=== PATIENT | male | born 1940 | race Caucasian/White ===

== ENCOUNTER 2016-12-23 20:16 | Emergency (ER) | payer MEDICARE ==
[~2016-12-23 20:16] MED LIST: ADULT ASPIRIN81 MG; ADULT LOW DOSE81 M1 PO; ADULT LOW DOSE81 MG; ADULT LOW DOSE81 MG PO; AMBIEN5 M1 PO; ANTIVERT12.5 MG PO; ARICEPT5 M1 PO; ATORVASTATIN CA20 M1 PO; AVELOX400 MG; BUSPAR15 MG/TAB PO; BUSPAR5 MG PO; BUSPIRONE HCL7.5 M1 PO; BUSPIRONE HCL7.5 MG PO; CYMBALTA60 MG; EFFIENT10 MG/TAB PO; LEXAPRO10 M2 PO; LISINOPRIL10 MG; LISINOPRIL20 M1 PO; LISINOPRIL20 MG; LISINOPRIL20 MG PO; LORAZEPAM0.5 MG PO; MOBIC15 M1 PO; MOBIC15 M2 PO; MOBIC15 MG; MOBIC15 MG PO; MUCINEX DM1 TAB.SR .; MULTIVITAMIN1 TAB; MULTIVITAMIN1 TAB PO; MULTIVITAMINS1 EAC7 PO; NAMENDA XR21 M1 PO; NITROGLYCERIN0.4 M2 SL; NORVASC5 M1 PO; NORVASC5 M2 PO; ONE DAILY MULTI1 TAB; OXAPROZIN600 MG; PREDNISONE20 MG PO; PROSCAR5 M1 PO; PROSCAR5 MG; PROSCAR5 MG PO; SIMVASTATIN40 MG PO; TEMAZEPAM15 M1 PO; TEMAZEPAM15 MG; TEMAZEPAM15 MG PO; VYTORIN 10/20 T1 TAB; ZOCOR40 MG; ZOCOR40 MG PO; ZOFRAN ODT4 MG/UDTAB PO
[2016-12-23] MEDS ORDERED: BUSPIRONE HCL5 M1 PO (20:30)
[2016-12-23] MEDS ORDERED: NAMENDA XR28 M1 PO (20:30)
[2016-12-23] MEDS ORDERED: NORVASC5 M2 PO (20:30)
[2016-12-23] MEDS ORDERED: ASPIRIN EC81 MG PO (20:30)
[2016-12-23] MEDS ORDERED: PRINIVIL20 M1 PO (20:31)
[2016-12-23] MEDS ORDERED: LEXAPRO10 M2 PO (20:31)
[2016-12-23] MEDS ORDERED: MELATONIN10 M4 PO (20:31)
[2016-12-23] MEDS ORDERED: ARICEPT10 M2 PO (20:31)
[2016-12-23] MEDS ORDERED: LIPITOR20 M1 PO (20:32)
[2016-12-23] MEDS ORDERED: MUCINEX DM ER1 EAC1 PO (20:33)
[2016-12-23] MEDS ORDERED: ALLEGRA ALLERG180 M1 PO (20:33)
[2016-12-23] MEDS ORDERED: POTASSIUM PO (20:34)
[2016-12-23] MEDS ORDERED: PROBIOTIC1 EA10 PO (20:34)
[2016-12-23] MEDS ORDERED: SINGULAIR10 M1 PO (20:34)
[2016-12-23] MEDS ORDERED: MEN 50 PLUS MU1 EACH PO (20:34)
[2016-12-23] MEDS ORDERED: PROSCAR5 M1 PO (20:35)
[2016-12-23 20:47] LABS: BASO % 0.2 % (0-2); EOS % 1.6 % (0-7); EOSINOPHIL ABSOLUTE COUNT 0.2 tho/cmm (0.0-0.7); HCT-HEMATOCRIT 38.2 % (36.0-53.5); HGB-HEMOGLOBIN 13.7 gm/dl (13.5-17.0); IMMATURE GRANULOCYTES ABSOLUTE 0.02 tho/cmm (0-0.03); IMMATURE GRANULOCYTES PERCENT 0.2 % (0-0.3); LYMPH % 12.9 % (20-45); LYMPH ABSOLUTE COUNT 1.7 tho/cmm (0.8-4.5); MCH (MEAN CORPUSCULAR HGB) 32.6 pg (28.0-32.0); MCHC MEAN CORPUSCULAR HGB CONC 35.9 % (32.0-36.0); MEAN PLATELET VOLUME 9.2 cmc (9.4-12.4); MONO % 8.3 % (0-12); MONOCYTE ABSOLUTE COUNT 1.1 tho/cmm (0.0-1.2); NEUTROPHIL ABSOLUTE COUNT 10.2 tho/cmm (1.6-8.0); NEUTROPHIL-AUTOMATED 10.2 tho/cmm (1.6-8.0); NEUTROPHILS % 76.8 % (40-80); PLATELET COUNT 217 tho/cmm (150-450); RED CELL DISTRIBUTION WIDTH 15.2 % (12.4-16.4); WHITE BLOOD COUNT 13.2 tho/cmm (4.0-10.0)
[2016-12-23 21:03] LABS: ANION GAP 13 mmol/L (0-20); BLOOD UREA NITROGEN 14 mg/dl (6-24); CALCIUM 8.4 mg/dl (8.5-10.5); CARBON DIOXIDE-VENOUS 24 mmol/L (22-32); CHLORIDE 101 mmol/l (96-110); GLUCOSE 97 mg/dL (70-110); SODIUM 133 mmol/L (135-145); eGFR VALUE FOR BLACK >90 mL/Min
[2016-12-23 21:17] LABS: POTASSIUM 4.7 mmol/L (3.7-5.1)
[2016-12-23 21:30] LABS: ALB/GLOB RATIO 0.8 (0.8-2.0); ALKALINE PHOSPHATASE 70 U/L (33-138); ALT/SGPT 29 U/L (12-78); BILIRUBIN,DIRECT <0.1 mg/dl (0.0-0.3); BILIRUBIN,INDIRECT 0.2 mg/dL (0.0-1.0); BILIRUBIN,TOTAL 0.3 mg/dl (0.0-1.5); LIPASE 171 U/L (73-393)
[2016-12-23 21:31] LABS: AST/SGOT 23 U/L (10-40)
[2016-12-23 21:32] LABS: ALBUMIN 3.3 g/dl (3.5-5.0)
[2016-12-23 22:32] LABS: URINE BILIRUBIN NEGATIVE (NEG); URINE BLOOD MODERATE (NEG); URINE GLUCOSE (UA) NEGATIVE (NEG); URINE KETONE NEGATIVE (NEG); URINE LEUKOCYTE ESTERASE NEGATIVE (NEG); URINE NITRITE NEGATIVE (NEG); URINE PROTEIN NEGATIVE (NEG)
[2016-12-23 22:38] LABS: URINE APPEARANCE CLEAR; URINE COLOR YELLOW
[2016-12-23 22:40] LABS: URINE EPITHELIAL CELLS RARE /[HPF] (0-10); URINE WBC 0 /[HPF] (0-5)
[2016-12-23] MEDS ORDERED: LEVAQUIN750 M1 PO (22:50)
[2016-12-23] MEDS ORDERED: HYDROCODONE-HO473 ML PO (22:50)
[2016-12-23] MEDS ORDERED: PREDNISONE20 M1 PO (22:50)
[2016-12-23] MEDS ORDERED: VENTOLIN HFA18 G2 PO (22:50)
[2017-05-18] MEDS ORDERED: FLONASE ALLERG9.9 ML (18:46)
[2017-05-18] MEDS ORDERED: FLOMAX0.4 M1 PO (22:49)
[2017-05-20] MEDS ORDERED: PLAVIX75 M1 PO (10:22)
== END 2016-12-23 22:55 ==
LOC: EDMED 20:16
PROVIDERS: Emergency Medicine
DX: J18.1 Lobar pneumonia, unspecified organism (principal); I25.10 Atherosclerotic heart disease of native coronary artery without angina pectoris; I10 Essential (primary) hypertension; E78.5 Hyperlipidemia, unspecified; Z95.1 Presence of aortocoronary bypass graft; Z79.82 Long term (current) use of aspirin; Z79.899 Other long term (current) drug therapy
CPT/HCPCS: J1200; J1720; Q9967